=== PATIENT | male | born 1975 | race African-American/Black ===

== ENCOUNTER 2018-04-07 09:04 | Day surgery (SDC) | payer OTHER ==
[~2018-04-07 09:04] MED LIST: Buffered Lidocaine 0.9% SYRIN* 5 ML/SYR SYRINGE INTRADERM ONE; Dexamethasone IV* 4 MG/ML 1 ML (4 MG) IV SLOW PU ONE; Dexamethasone IV* 4 MG/ML 1 ML (4 MG) ONE; Famotidine IV* 10 MG/ML 2 ML (20 mg) IV ONE; Famotidine IV* 10 MG/ML 2 ML (20 mg) ONE
[2018-04-07] MEDS ORDERED: ceFAZolin 2 GM PREMIX in ORs 2 GM/50 ML BAG IVPB ONE (09:09)
[2018-04-07] MEDS ORDERED: Naloxone* 0.4 MG/ML 1 ML VIAL IV PRN (09:46)
[2018-04-07] MEDS ORDERED: HYDROcodone/ACETAMIN 5-325 MG* 1 TAB PO PRN (09:46)
[2018-04-07] MEDS ORDERED: fentaNYL* 50 MCG/ML 2 ML VIAL (100 MCG VIAL) IV PRN (09:46)
[2018-04-07] MEDS ORDERED: oxyCODONE/Acetamin 5/325 MG* TAB PO PRN (09:46)
[2018-04-07] MEDS ORDERED: Ketorolac INJ* 30 MG/ML 1 ML VIAL IV PRN (09:46)
[2018-04-07] MEDS ORDERED: DiMENhydriNATE IV* 50 MG/ML VIAL IV PUSH PRN (09:46)
[2018-04-07] MEDS ORDERED: Propofol* 10 MG/ML 20 ML BTL IV PUSH ONE (09:54)
[2018-04-07] MEDS ORDERED: fentaNYL* 50 MCG/ML 5 ML VIAL (250 MCG VIAL) ONE (09:54)
[2018-04-07] MEDS ORDERED: Midazolam* 1 MG/ML 5 ML VIAL (5 MG) ONE (09:54)
[2018-04-07] MEDS ORDERED: Lidocaine 2% PF * 5 ML VIAL ONE (09:54)
[2018-04-07] MEDS ORDERED: Mivacurium Chloride* 20 MG/10 ML VIAL IV ONE (09:54)
[2018-04-07] MEDS ORDERED: ROPIVACAINE 5 MG/ML 30 ML BTL (0.5%) ONE (10:53)
[2018-04-07] MEDS ORDERED: EPHEDrine (Pressors)* 50 MG/ML VIAL ONE (11:52)
[2018-04-07] MEDS ORDERED: Ondansetron INJ* 2 MG/ML VIAL ONE (12:08)
[2018-04-07] MEDS ORDERED: fentaNYL* 50 MCG/ML 2 ML VIAL (100 MCG VIAL) ONE (12:11)
[2018-04-07] MEDS ORDERED: Labetalol IV* 5 MG/ML 20 ML VIAL ONE (12:52)
[2018-04-07] MEDS ORDERED: Ketorolac INJ* 30 MG/ML 1 ML VIAL ONE (13:44)
[2018-04-07] MEDS ORDERED: DiMENhydriNATE IV* 50 MG/ML VIAL ONE (13:44)
[2018-04-07 14:42] VITALS: BP 148/78
--- NOTE | 2018-04-08 14:50 | RAD ---
INDICATION: M 25.521 COMPARISONS: February 04, 2018 TECHNIQUE: Fluoroscopy was provided for a surgical procedure. Total fluoroscopy time is: 6 seconds FINDINGS: Spot images are submitted of the elbow. IMPRESSION: FLUOROSCOPY WAS PROVIDED FOR A SURGICAL PROCEDURE CPT II Codes: G9500
--- NOTE | 2018-04-16 04:28 | OP ---
OPERATIVE REPORT: DATE OF OPERATION: 04/07/18 DATE OF : 75 SURGEON: Cordell Coppola MD RIGGING LOFT REPAIRER: AMADOU Dewey An nurse practitioner physicians assistant was needed for the procedure to aid in positioning of the arm and retraction. ANESTHESIOLOGIST: Dr. Omer. ANESTHESIA: General. PRE-OP DIAGNOSIS: Very large right distal triceps tendon enthesophyte involving the significant portion of the triceps tendon. POST-OP DIAGNOSIS: Very large right distal triceps tendon enthesophyte involving the significant portion of the triceps tendon. OPERATIVE PROCEDURE: 1. Excision of large right distal triceps tendon enthesophyte. 2. Right olecranon bursectomy. 3. Right distal triceps tendon repair. INDICATIONS: Jose is a prisoner. He has a very large and symptomatic right triceps tendon enthesophyte involving the large portion of the triceps tendon. I have talked to him about excision, which would likely require repair of the tendon given the extent of the tendon involved. Additionally, he has a bit of bursitis overlying the area as well and so we talked about excising the bursa as well. He agreed and wanted to proceed. He understands the risk of triceps tendon rupture, the risk of hematoma, the risk of wound problems, the need for postoperative splinting and protected motion and would like to proceed. Certainly, he is high risk for some of these complications due to him being an inmate. ESTIMATED BLOOD LOSS: 2 mL. COMPLICATIONS: None. FINDINGS: See above and below. DESCRIPTION OF PROCEDURE: Jose was seen in the preoperative holding area. The correct site, side, and procedure were identified. We came back to the operating room. The arm was prepped and draped in the usual fashion. A time- out was performed. He was positioned in the lateral decubitus position. The arm was exsanguinated with the Esmarch and the tourniquet inflated to 275 mmHg. I made a posterior incision over the elbow. Dissection was carried down and the olecranon bursa was excised in its entirety taking care not to perforate the skin. The bursa was handed off as a specimen. I then shelled out the very large enthesophyte. This involved a good portion of the triceps tendon. I used the osteotome to complete the excision. This was handed off as another specimen. I then used the rongeur to trim back the bone to normal [place] olecranon. This was confirmed on mini C-arm fluoroscopy. Lastly, I had to address the defect in the triceps tendon. I took two #2 FiberWire and performed 2 Pierce whipstitches up and down the tendon. I then placed 3 drill tunnels from the footprint of the triceps tendon exiting out the ulna distally. The Arteris suture passer was used to pass the 2 tails of the suture through the middle of bone tunnel and 1 tail of suture through the medial and lateral tunnel. I then extended the elbow and pulled full tension to bring the tendon down the bone. The sutures were then tied off over the bony bridges. A 1 cm bone bridge was preserved at each site. I then used a 2-0 Vicryl suture to just sew down the edges of the tendon and make them nice and flush. The medial and lateral margins were sewed down with the Vicryl as well. At this point, everything was looking nice. We irrigated out the wound. The flaps were reapproximated with 3-0 Vicryl sutures. The skin was closed with 3-0 nylon suture. The wound was well padded and a compression splint was applied and put the elbow in 30 degrees of flexion. Tourniquet was then deflated and he was awoken up and taken to the recovery room in stable condition. [id number]/CPS #: [id number] [facility]AS
== END 2018-04-07 14:55 | disposition home or self-care (01) ==
LOC: OREAST 09:04
PROVIDERS: ATTEND Orthopaedic Surgery Hand Surgery
DX: M65.221 Calcific tendinitis, right upper arm (principal); M77.8 Other enthesopathies, not elsewhere classified; J45.909 Unspecified asthma, uncomplicated
CPT/HCPCS: 76000; 88304; 88311; J0690; J1100; J1240; J1885; J2250; J2405; J2704; J2795; J3010